=== PATIENT | female | born 1940 | race American Indian/Alaskan Native ===

== ENCOUNTER 2021-06-03 12:10 | Observation (INO) | payer MEDICARE ==
[2021-06-03 15:46] LABS: Albumin 3.3 g/dL (3.9-5); Calcium 10.5 mg/dL (8.4-10.2)
[2021-06-03 15:53] LABS: Basophils # (Auto) 0.2 K/mm3 (0.0-0.1); Eosinophils % (Auto) 0.4 % (0.0-4.3); Hemoglobin 12.8 gm/dl (10.1-14.3); Lymphocytes % (Auto) 12.1 % (13.4-35.0); Mean Corpuscular HGB Conc 34 % (30-34); Mean Corpuscular Volume 87 fl (79-97); Monocytes # (Auto) 1.1 K/mm3 (0.0-0.8); Monocytes % (Auto) 13.4 % (0.0-7.3); Platelet Count 369 K/mm3 (140-440); Red Blood Count 4.38 M/mm3 (3.65-5.03); Red Cell Distribution Width 15.6 % (13.2-15.2)
--- NOTE | 2021-06-03 16:29 | XRay Report ---
CHEST 1 VIEW INDICATION / CLINICAL INFORMATION: hypotension. COMPARISON: None available. FINDINGS: SUPPORT DEVICES: None. HEART / MEDIASTINUM: No significant abnormality. LUNGS / PLEURA: There is mild elevation of the right hemidiaphragm with a small right pleural effusio n. The lungs are otherwise clear without focal pulmonary consolidation. No pneumothorax. ADDITIONAL FINDINGS: No significant additional findings. IMPRESSION: 1. Mild elevation of the right hemidiaphragm with a small right pleural effusion. Otherwise, no acute abnormality. Signer Name: Alivia Schwartz MD Signed: 06/03/2021 4:25 PM Workstation Name: [id number]
--- NOTE | 2021-06-03 16:47 | Emergency Department Report ---
ED General Adult HPI - General Chief complaint: Medical Clearance Stated complaint: HYPOTENSION Time Seen by Provider: 06/03/21 13:28 Source: EMS Mode of arrival: Stretcher Limitations: No Limitations - History of Present Illness Initial comments: The patient presents to the emergency department from [facility] for hypotension. Patient has a history of breast cancer and states she is in no pain. Patient had systolic blood pressure readings in the 80s and 90s at [facility]. Patient is normotensive upon arrival to the emergency department with a blood pressure 114/74. Patient denies chest pain, shortness breath, headache. I was able to find out that the patient's blood pressure at [facility] was 80/60. Patient received IV fluids in route. -: unknown Severity scale (0 -10): 0 Consistency: now resolved Improves with: none Worsens with: none Associated Symptoms: denies other symptoms Treatments Prior to Arrival: none - Related Data Home Medications Medication Instructions Recorded Confirmed Last Taken Loratadine (Nf) [Claritin] 10 mg PO DAILY 05/27/17 05/27/17 05/31/17 guaiFENesin/DEXTROMETHORPHAN [Gs 1 tab PO PRN PRN 05/27/17 05/27/17 05/31/17 Mucus Relief Dm Tablet] Allergies Allergy/AdvReac Type Severity Reaction Status Date / Time Iodinated Contrast Media Allergy Swelling Verified 05/27/17 11:48 [Iodinated Contrast Media - IV Dye] ED Review of Systems ROS: Stated complaint: HYPOTENSION Other details as noted in HPI Comment: All other systems reviewed and negative Constitutional: denies: chills, fever Eyes: denies: eye pain, eye discharge, vision change ENT: denies: ear pain, throat pain Respiratory: denies: cough, shortness of breath, wheezing Cardiovascular: denies: chest pain, palpitations Endocrine: no symptoms reported Gastrointestinal: denies: abdominal pain, nausea, diarrhea Genitourinary: denies: urgency, dysuria, discharge Musculoskeletal: denies: back pain, joint swelling, arthralgia Skin: denies: rash, lesions Neurological: denies: headache, weakness, paresthesias Psychiatric: denies: anxiety, depression Hematological/Lymphatic: denies: easy bleeding, easy bruising ED Past Medical Hx - Past Medical History Hx Hypertension: No Hx Congestive Heart Failure: No Hx GERD: Yes Hx Liver Disease: No Hx Renal Disease: No Hx of Cancer: Yes Hx Sickle Cell Disease: No Hx Arthritis: Yes - Surgical History Past Surgical History?: Yes Additional Surgical History: bilateral knee replacement. hysterectomy - Social History Smoking Status: Never Smoker - Medications Home Medications: Home Medications Medication Instructions Recorded Confirmed Last Taken Type Loratadine (Nf) [Claritin] 10 mg PO DAILY 05/27/17 05/27/17 05/31/17 History guaiFENesin/DEXTROMETHORPHAN [Gs 1 tab PO PRN PRN 05/27/17 05/27/17 05/31/17 History Mucus Relief Dm Tablet] ED Physical Exam - General Limitations: No Limitations General appearance: alert, in no apparent distress - Head Head exam: Present: atraumatic, normocephalic - Eye Eye exam: Present: normal appearance, PERRL, EOMI - ENT ENT exam: Present: mucous membranes moist - Neck Neck exam: Present: normal inspection - Respiratory Respiratory exam: Present: normal lung sounds bilaterally. Absent: respiratory distress - Cardiovascular Cardiovascular Exam: Present: regular rate, normal rhythm. Absent: systolic murmur, diastolic murmur, rubs, gallop - GI/Abdominal GI/Abdominal exam: Present: soft, normal bowel sounds. Absent: distended, tenderness - Extremities Exam Extremities exam: Present: normal inspection - Back Exam Back exam: Present: normal inspection - Neurological Exam Neurological exam: Present: alert, oriented X3, CN II-XII intact. Absent: motor sensory deficit - Psychiatric Psychiatric exam: Present: normal affect, normal mood - Skin Skin exam: Present: warm, dry, intact, normal color. Absent: rash ED Course Vital Signs 06/03/21 06/03/21 13:39 14:16 Temperature 98.0 F O2 Sat by Pulse 99 Oximetry ED Medical Decision Making - Lab Data Result diagrams: 06/03/21 15:06 06/03/21 15:06 Lab Results 06/03/21 06/03/21 06/03/21 Range/Units 15:06 15:06 17:42 WBC 8.2 (4.5-11.0) K/mm3 RBC 4.38 (3.65-5.03) M/mm3 Hgb 12.8 (10.1-14.3) gm/dl Hct 38.0 (30.3-42.9) % MCV 87 (79-97) fl MCH 29 (28-32) pg MCHC 34 (30-34) % RDW 15.6 H (13.2-15.2) % Plt Count 369 (140-440) K/mm3 Lymph % (Auto) 12.1 L (13.4-35.0) % [place] % (Auto) 13.4 H (0.0-7.3) % Eos % (Auto) 0.4 (0.0-4.3) % Baso % (Auto) 2.0 H (0.0-1.8) % Lymph # (Auto) 1.0 L (1.2-5.4) K/mm3 [place] # (Auto) 1.1 H (0.0-0.8) K/mm3 Eos # (Auto) 0.0 (0.0-0.4) K/mm3 Baso # (Auto) 0.2 H (0.0-0.1) K/mm3 Seg Neutrophils % 72.1 H (40.0-70.0) % Seg Neutrophils # 5.9 (1.8-7.7) K/mm3 Sodium 132 L (137-145) mmol/L Potassium 3.3 L (3.6-5.0) mmol/L Chloride 92.3 L (98-107) mmol/L Carbon Dioxide 25 (22-30) mmol/L Anion Gap 18 mmol/L BUN 16 (7-17) mg/dL Creatinine 1.3 H (0.6-1.2) mg/dL Estimated GFR 48 ml/min BUN/Creatinine Ratio 12 % Glucose 85 (65-100) mg/dL Calcium 10.5 H (8.4-10.2) mg/dL Total Bilirubin 0.90 (0.1-1.2) mg/dL AST 72 H (5-40) units/L ALT 13 (7-56) units/L Alkaline Phosphatase 113 (35-129) units/L Total Protein 7.2 (6.3-8.2) g/dL Albumin 3.3 L (3.9-5) g/dL Albumin/Globulin Ratio 0.8 % Urine Color [place] (Yellow) Urine Turbidity Cloudy (Clear) Urine pH 5.0 (5.0-7.0) Ur Specific [place] 1.015 (1.003-1.030) Urine Protein >500 (Negative) mg/dL Urine Glucose (UA) 50 (Negative) mg/dL Urine Ketones Tr (Negative) mg/dL Urine Blood Sm (Negative) Urine Nitrite Neg (Negative) Urine Bilirubin Neg (Negative) Urine Urobilinogen < 2.0 (<2.0) mg/dL Ur Leukocyte Esterase Tr (Negative) Urine WBC (Auto) 25.0 H (0.0-6.0) /HPF Urine RBC (Auto) 7.0 (0.0-6.0) /HPF U Epithel Cells (Auto) 5.0 (0-13.0) /HPF Urine Bacteria (Auto) 4+ (Negative) /HPF Hyaline Casts 35 /LPF Urine Mucus 3+ /HPF - EKG Data -: EKG Interpreted by Me EKG shows normal: sinus rhythm Rate: normal - Medical Decision Making Patient received IV fluids and IV antibiotics Critical care attestation.: If time is entered above; I have spent that time in minutes in the direct care of this critically ill patient, excluding procedure time. ED Disposition Clinical Impression: UTI (urinary tract infection), Hypotension Disposition: DC-09 OP ADMIT IP TO THIS HOSP Is pt being admited?: Yes Does the pt Need Aspirin: No Condition: Fair Referrals: TYRESE EMMANUEL MD [Primary Care Provider] - 3-5 Days
[2021-06-03 18:01] LABS: Bacteria,Urine 4+ /HPF (Negative); Bilirubin,Urine NEG (Negative); Blood,Urine SM (Negative); Color,Urine Amber (Yellow); Hyaline Casts,Urine 35 /LPF; Mucus,Urine 3+ /HPF; Urobilinogen,Urine < 2.0 mg/dL (<2.0)
[2021-06-03 18:06] LABS: Protein,Urine >500 mg/dL (Negative)
[2021-06-03] MEDS ORDERED: cefTRIAXone/NS 1 GM/50 ML 1 GM/50 ML BAG IV ONE (18:42)
--- NOTE | 2021-06-03 20:28 | History and Physical Report ---
History of Present Illness Date of examination: 06/03/21 Date of admission: 06/03/21 19:42 Chief complaint: hypotension History of present illness: The patient presents to the emergency department from [facility] for hypotension. Patient has a history of breast cancer and states she is in no pain. Patient had systolic blood pressure readings in the 80s and 90s at [facility]. Patient is normotensive upon arrival to the emergency department with a blood pressure 114/74. Patient denies chest pain, shortness breath, headache. I was able to find out that the patient's blood pressure at [facility] was 80/60. ED work-up WBC 8.5, hemoglobin 12.6, platelet 325, hemoglobin A1c 5.6, sodium 132, potassium 3.3, creatinine 1.3, and serum albumin 3.3. Patient seen at bedside in the ED. Patient alert oriented x3. Reviewed chest x-ray report patient has a mild elevation of the right hemidiaphragm with a small right pleural effusion. Patient has a history of breast cancer with skin wound with wound on her chestshe denies any pain at the site patient came with low blood pressure in the 80s and 90s systolic but has status has improved at this time time of this assessment. I reviewed patient medication record, medical record, and vital signs. Patient was not in acute distress. Past History Past Medical History: cancer, other (seasonal allergies) Past Surgical History: hysterectomy, total knee replacement, Other (breast surgery due to breast cancer) Medications and Allergies Allergies Allergy/AdvReac Type Severity Reaction Status Date / Time Iodinated Contrast Media Allergy Swelling Verified 05/27/17 11:48 [Iodinated Contrast Media - IV Dye] Home Medications Medication Instructions Recorded Confirmed Last Taken Type No Known Home Medications [No 06/04/21 06/04/21 Unknown History Reported Home Medications] Review of Systems Constitutional: fatigue, weakness Ears, nose, mouth and throat: no epistaxis Respiratory: cough Gastrointestinal: no melena Rectal: no hemorrhoids Integumentary: wounds (on her breast), no rash, no pruritis Neurological: weakness Psychiatric: no disorientation, no hallucinations Hematologic/Lymphatic: no easy bruising, no easy bleeding Allergic/Immunologic: allergic rhinitis, no urticaria Exam - Constitutional Vitals: Temp Pulse Resp BP Pulse Ox 98.0 F 99 06/03/21 13:39 06/03/21 14:16 General appearance: Present: mild distress, other (frail appearing patient) - EENT Eyes: Present: PERRL ENT: hearing intact, clear oral mucosa - Neck Neck: Present: supple, normal ROM - Respiratory Respiratory effort: normal Respiratory: bilateral: CTA - Cardiovascular Heart Sounds: Present: S1 & S2. Absent: rub, click - Extremities Extremities: pulses symmetrical, No edema Peripheral Pulses: within normal limits - Abdominal General gastrointestinal: Present: soft, non-tender, non-distended, normal bowel sounds Female genitourinary: Present: normal - Integumentary Integumentary: Present: clear, warm, dry - Musculoskeletal Musculoskeletal: gait normal, strength equal bilaterally - Psychiatric Psychiatric: appropriate mood/affect, intact judgment & insight - Neurologic Neurologic: CNII-XII intact, moves all extremities - Allied Health Allied health notes reviewed: nursing Results - Labs CBC & Chem 7: 06/04/21 04:54 06/03/21 15:06 Labs: Abnormal lab results 06/03/21 06/03/21 06/03/21 Range/Units 15:06 15:06 17:42 RDW 15.6 H (13.2-15.2) % Lymph % (Auto) 12.1 L (13.4-35.0) % [place] % (Auto) 13.4 H (0.0-7.3) % Baso % (Auto) 2.0 H (0.0-1.8) % Lymph # (Auto) 1.0 L (1.2-5.4) K/mm3 [place] # (Auto) 1.1 H (0.0-0.8) K/mm3 Baso # (Auto) 0.2 H (0.0-0.1) K/mm3 Seg Neutrophils % 72.1 H (40.0-70.0) % Sodium 132 L (137-145) mmol/L Potassium 3.3 L (3.6-5.0) mmol/L Chloride 92.3 L (98-107) mmol/L Creatinine 1.3 H (0.6-1.2) mg/dL Calcium 10.5 H (8.4-10.2) mg/dL AST 72 H (5-40) units/L Albumin 3.3 L (3.9-5) g/dL Urine WBC (Auto) 25.0 H (0.0-6.0) /HPF Assessment and Plan - Patient Problems (1) Hypotension Current Visit: Yes Status: Acute Plan to address problem: Monitor blood pressure Hold all antihypertensive Continue gentle IV hydration. (2) UTI (urinary tract infection) Current Visit: Yes Status: Acute Plan to address problem: Continue antibiotics Urine and blood culturefollow-up with results Continue IV hydration. (3) Degenerative arthritis of left knee Current Visit: No Status: Resolved Qualifiers: Osteoarthritis type: primary Qualified Code(s): M17.12 - Unilateral primary osteoarthritis, left knee Plan to address problem: Pain management as needed (4) History of breast cancer Current Visit: Yes Status: Acute Plan to address problem: Supportive care (5) DVT prophylaxis Current Visit: Yes Status: Acute Plan to address problem: Lovenox subcutaneous (6) Full code status Current Visit: Yes Status: Acute Plan to address problem: Patient is full code
[2021-06-03] MEDS ORDERED: METOCLOPRAMIDE 10 MG/2 ML INJ IV PRN (20:35)
[2021-06-03] MEDS ORDERED: ACETAMINOPHEN 325 MG TAB PO PRN (20:35)
[2021-06-03] MEDS ORDERED: SENNOSIDES 8.6 MG TAB PO PRN (20:35)
[2021-06-03] MEDS ORDERED: ALBUTEROL 2.5 MG/3 ML NEBU IH PRN (20:35)
[2021-06-03] MEDS ORDERED: MAGNESIUM HYDROXIDE (MOM) ORAL LIQD UDC PO PRN (20:35)
[2021-06-03] MEDS ORDERED: HYDROcodone/ACETAMINOPHEN 5-325 MG TAB PO PRN (20:35)
[2021-06-03] MEDS ORDERED: MORPHINE 2 MG/1 ML INJ IV PRN (20:35)
[2021-06-03] MEDS ORDERED: HYDROmorphone 1 MG/1 ML INJ IV PRN (20:35)
[2021-06-03] MEDS ORDERED: ONDANSETRON 4 MG/2 ML INJ IV PRN (20:35)
[2021-06-03] MEDS ORDERED: ALUM-MAG HYDROXIDE-SIMETHICONE 200-200-20MG/5ML ORAL LIQD 30 ML PO PRN (20:35)
[2021-06-03] MEDS ORDERED: NALOXONE 0.4 MG/1 ML INJ IV PRN (20:35)
[2021-06-03] MEDS ORDERED: guaiFENesin DM 200/20 MG ORAL LIQD 10 ML PO PRN (20:43)
[2021-06-03] MEDS ORDERED: NON-FORMULARY EACH (Loratadine (Nf) 10 MG Tablet) PO SCH (20:45)
[2021-06-03] MEDS ORDERED: FAMOTIDINE 20 MG/2 ML INJ IV SCH (22:00)
[2021-06-04] MEDS: CETIRIZINE 10 MG TAB PO SCH ×2 (01:46→23:10)
[2021-06-04] MEDS: ENOXAPARIN 40 MG/0.4 ML INJ SUB-Q SCH ×2 (01:47→23:09)
[2021-06-04 06:20] LABS: Basophils # (Auto) 0.1 K/mm3 (0.0-0.1); Basophils % (Auto) 0.9 % (0.0-1.8); Eosinophils % (Auto) 0.2 % (0.0-4.3); Hematocrit 37.3 % (30.3-42.9); Hemoglobin 12.6 gm/dl (10.1-14.3); Lymphocytes % (Auto) 12.2 % (13.4-35.0); Mean Corpuscular HGB Conc 34 % (30-34); Mean Corpuscular Volume 86 fl (79-97); Monocytes % (Auto) 11.6 % (0.0-7.3); Platelet Count 325 K/mm3 (140-440); Red Blood Count 4.32 M/mm3 (3.65-5.03); Red Cell Distribution Width 15.8 % (13.2-15.2)
[2021-06-04 06:36] LABS: Alanine Aminotransferase 15 units/L (7-56); Albumin 3.4 g/dL (3.9-5); BUN/Creatinine Ratio 21; Blood Urea Nitrogen 17 mg/dL (7-17); Calcium 10.4 mg/dL (8.4-10.2); Hemolysis Index 2
[2021-06-04] MEDS ORDERED: SODIUM CHLORIDE 0.9% 1000 ML 1,000 ML IV SCH (07:15)
--- NOTE | 2021-06-04 10:24 | Electrocardiograph Report ---
[facility] Test Date: 2021-06-03 Test Time: 13:30:04 Pat Name: MARLENA BARRETT Department: Room: [place] [address] Gender: F Deck Steward: MEKA : 1940 Requested By: ZION LEMUS Order Number: [id number] Reading MD: Zack Gil Measurements Intervals [place] Rate: 89 P: 118 IN: 118 QRS: 54 QRSD: 83 T: QT: 345 QTc: 420 Interpretive Statements Sinus rhythm Probable left atrial enlargement Nonspecific T abnormalities, diffuse leads No previous ECG available for comparison Electronically Signed On 06-04-2021 10:24:08 EDT by Zack Gil
--- NOTE | 2021-06-04 13:40 | Consultation ---
History of Present Illness Consult date: 06/04/21 Reason for consult: pleural effusion, other (Hypotension.) History of present illness: The patient presents to the emergency department from [facility] for hypotension. Patient has a history of breast cancer and states she is in no pain. Patient had systolic blood pressure readings in the 80s and 90s at [facility]. Patient is normotensive upon arrival to the emergency department with a blood pressure 114/74. Patient denies chest pain, shortness breath, headache. Patient's blood pressure at [facility] was 80/60. ED work-up WBC 8.5, hemoglobin 12.6, platelet 325, hemoglobin A1c 5.6, sodium 132, potassium 3.3, creatinine 1.3, and serum albumin 3.3. Patient seen at bedside in the ED. Patient alert oriented x3. Reviewed chest x-ray report patient has a mild elevation of the right hemidiaphragm with a small right pleural effusion. Patient has a history of breast cancer with skin wound with wound on her chestshe denies any pain at the site patient came with low blood pressure in the 80s and 90s systolic but has status has improved at this time time of this assessment. Patient has no history of smoking, alcohol or drug abuse. Patient awake. Patient weak. Patient resting on room air. O2 saturation 98%. Patients Blood pressure improved. Patients blood pressure 130/80, Pulse 110. Patient afebrile. No leukocytosis. Chest xray done 06/03/21 reported Mild elevation of the right hemidiaphragm with a small right pleural effusion. Otherwise, no acute abnormality. Patient is on ceftriaxone, S/C Lovenox, Albuterol inhaler, Famotidine and I/V Fluids. Past History Past Medical History: cancer, other (seasonal allergies) Past Surgical History: hysterectomy, total knee replacement, Other (breast surgery due to breast cancer) Medications and Allergies Allergies Allergy/AdvReac Type Severity Reaction Status Date / Time Iodinated Contrast Media Allergy Swelling Verified 05/27/17 11:48 [Iodinated Contrast Media - IV Dye] Home Medications Medication Instructions Recorded Confirmed Last Taken Type No Known Home Medications [No 06/04/21 06/04/21 Unknown History Reported Home Medications] Active Meds: Active Medications Acetaminophen (Acetaminophen 325 Mg Tab) 650 mg PO Q6H PRN PRN Reason: Pain, Mild (1-3) Hydrocodone Bitart/Acetaminophen (Hydrocodone/Acetaminophen 5-325 Mg Tab) 2 each PO Q6H PRN PRN Reason: Pain, Moderate (4-6) Al Hydrox/Mg Hydrox/Simethicone (Alum-Mag Hydroxide-Simethicone [phone]/5ml Oral Liqd 30 Ml) 30 ml PO Q4H PRN PRN Reason: Indigestion Albuterol (Albuterol 2.5 Mg/3 Ml Nebu) 2.5 mg IH Q4HRT PRN PRN Reason: Shortness Of Breath Cetirizine HCl (Cetirizine 10 Mg Tab) 10 mg PO Q24H PENDING SALE TO [facility] Last Admin: 06/04/21 01:46 Dose: Not Given Documented by: Enoxaparin Sodium (Enoxaparin 40 Mg/0.4 Ml Inj) 40 mg SUB-Q QDAY@2200 PENDING SALE TO [facility] Last Admin: 06/04/21 01:47 Dose: 40 mg Documented by: Famotidine (Famotidine 10 Mg Tab) 10 mg PO BID PENDING SALE TO [facility] Guaifenesin (Guaifenesin Dm 200/20 Mg Oral Liqd 10 Ml) 10 ml PO Q4H PRN PRN Reason: Congestion/COUGH Ceftriaxone Sodium (Rocephin/Ns 1 Gm/50 Ml) 1 gm in 50 mls @ 100 mls/hr IV Q24H PENDING SALE TO [facility]; Protocol Stop: 06/06/21 17:29 Sodium Chloride (Nacl 0.9% 1000 Ml) 1,000 mls @ 75 mls/hr IV DIRECT SHALINI Magnesium Hydroxide (Magnesium Hydroxide (Mom) Oral Liqd Udc) 30 ml PO Q4H PRN PRN Reason: Constipation Metoclopramide HCl (Metoclopramide 10 Mg/2 Ml Inj) 10 mg IV Q6H PRN PRN Reason: Nausea And Vomiting Naloxone HCl (Naloxone 0.4 Mg/1 Ml Inj) 0.1 mg IV Q2MIN PRN PRN Reason: Res Rate </= 8 or 02 SAT < 92% Ondansetron HCl (Ondansetron 4 Mg/2 Ml Inj) 4 mg IV Q8H PRN PRN Reason: Nausea And Vomiting Senna (Sennosides 8.6 Mg Tab) 8.6 mg PO Q12HR PRN PRN Reason: Constipation Sodium Chloride (Sodium Chloride 0.9% 10 Ml Flush Syringe) 10 ml IV BID SHALINI Last Admin: 06/04/21 01:47 Dose: 10 ml Documented by: Sodium Chloride (Sodium Chloride 0.9% 10 Ml Flush Syringe) 10 ml IV PRN PRN PRN Reason: LINE FLUSH Review of Systems All systems: negative Physical Examination Vital signs: Vital Signs Pulse Resp Pulse Ox 88 24 96 06/03/21 13:35 06/03/21 13:35 06/03/21 13:35 General appearance: no acute distress, alert, other (Weak.) Eyes: non-icteric ENT: oropharynx moist Neck: supple, no JVD Effort: mildly labored Ascultation: Bilateral: diminished breath sounds Cardiovascular: regular rate and rhythm Gastrointestinal: normoactive bowel sounds, soft, non-tender Integumentary: normal Extremities: no cyanosis, no edema Gait: poor gait non-focal exam, pupils equal and round depressed Results - Laboratory Findings CBC and BMP: 06/04/21 04:54 06/04/21 04:54 Abnormal lab findings: Abnormal Labs 06/03/21 06/03/21 06/03/21 15:06 15:06 17:42 RDW 15.6 H Lymph % (Auto) 12.1 L [place] % (Auto) 13.4 H Baso % (Auto) 2.0 H Lymph # (Auto) 1.0 L [place] # (Auto) 1.1 H Baso # (Auto) 0.2 H Seg Neutrophils % 72.1 H Sodium 132 L Potassium 3.3 L Chloride 92.3 L Creatinine 1.3 H Calcium 10.5 H AST 72 H Albumin 3.3 L Urine WBC (Auto) 25.0 H 06/04/21 06/04/21 04:54 04:54 RDW 15.8 H Lymph % (Auto) 12.2 L [place] % (Auto) 11.6 H Baso % (Auto) Lymph # (Auto) 1.0 L [place] # (Auto) 1.0 H Baso # (Auto) Seg Neutrophils % 75.1 H Sodium 135 L Potassium Chloride 93.7 L Creatinine Calcium 10.4 H AST 87 H Albumin 3.4 L Urine WBC (Auto) - Diagnostic Findings Chest x-ray: report reviewed, image reviewed Additional studies: CHEST 1 VIEW 06/03/21 INDICATION / CLINICAL INFORMATION: hypotension. COMPARISON: None available. FINDINGS: SUPPORT DEVICES: None. HEART / MEDIASTINUM: No significant abnormality. LUNGS / PLEURA: There is mild elevation of the right hemidiaphragm with a small right pleural effusion. The lungs are otherwise clear without focal pulmonary consolidation. No pneumothorax. ADDITIONAL FINDINGS: No significant additional findings. IMPRESSION: 1. Mild elevation of the right hemidiaphragm with a small right pleural effusion. Otherwise, no acute abnormality. Assessment and Plan The patient presents to the emergency department from [facility] for hypotension. Patient has a history of breast cancer and states she is in no pain. Patient had systolic blood pressure readings in the 80s and 90s at [facility]. Patient is normotensive upon arrival to the emergency department with a blood pressure 114/74. Patient denies chest pain, shortness breath, headache. Patient's blood pressure at [facility] was 80/60. ED work-up WBC 8.5, hemoglobin 12.6, platelet 325, hemoglobin A1c 5.6, sodium 132, potassium 3.3, creatinine 1.3, and serum albumin 3.3. Patient seen at bedside in the ED. Patient alert oriented x3. Reviewed chest x-ray report patient has a mild elevation of the right hemidiaphragm with a small right pleural effusion. Patient has a history of breast cancer with skin wound with wound on her chestshe denies any pain at the site patient came with low blood pressure in the 80s and 90s systolic but has status has improved at this time time of this assessment. Patient has no history of smoking, alcohol or drug abuse. Patient awake. Patient weak. Patient resting on room air. O2 saturation 98%. Patients Blood pressure improved. Patients blood pressure 130/80, Pulse 110. Patient afebrile. No leukocytosis. Chest xray done 06/03/21 reported Mild elevation of the right hemidiaphragm with a small right pleural effusion. Otherwise, no acute abnormality. Patient is on ceftriaxone, S/C Lovenox, Albuterol inhaler, Famotidine and I/V Fluids. - Patient Problems (1) Hypotension Current Visit: Yes Status: Acute Plan to address problem: Patient is on I/V fluids and ceftriaxone. (2) UTI (urinary tract infection) Current Visit: Yes Status: Acute Plan to address problem: Patient is on ceftriaxone.
[2021-06-04 16:09] LABS: INR 1.1 (0.87-1.13)
--- NOTE | 2021-06-04 16:38 | Progress Note ---
Assessment and Plan The patient presented to the emergency department from [facility] for hypotension. -- Hypotension, resolved Monitor blood pressure Hold all antihypertensive Continue gentle IV hydration. --COVID 19 PUI patient did not receive COVID vaccine c/o cough, will r/o for COVID -- UTI (urinary tract infection) Continue antibiotics Urine and blood culturefollow-up with results Continue IV hydration. --Right pleural effusion ordered for thoracentesis and cytology -- Degenerative arthritis of left knee Pain management as needed -- History of breast cancer left breast mass with ulcer, not on any treatment discussed with Dr Serrano with patient's findings and recommended outpt f/u - updated daughter -- DVT prophylaxis Lovenox subcutaneous Subjective Date of service: 06/04/21 Interval history: Patient seen and examined vitals noted c/o cough and left breast mass Discussed with daughter by phone Objective - Constitutional Vitals: Vital Signs - 12hr 06/04/21 06/04/21 06/04/21 04:46 05:00 05:18 Pulse Rate 86 86 91 H Respiratory 28 H 25 H 18 Rate Blood Pressure 136/79 136/79 O2 Sat by Pulse 94 93 93 Oximetry 06/04/21 06/04/21 06/04/21 05:30 05:46 06:00 Pulse Rate 84 83 90 Respiratory 28 H 28 H 25 H Rate Blood Pressure 143/88 143/88 140/87 O2 Sat by Pulse 94 93 94 Oximetry 06/04/21 06/04/21 06/04/21 06:16 06:30 07:00 Pulse Rate 94 H 95 H 93 H Respiratory 28 H 26 H 28 H Rate Blood Pressure 140/87 140/87 145/83 O2 Sat by Pulse 96 94 94 Oximetry 06/04/21 06/04/21 06/04/21 08:00 09:00 10:00 Pulse Rate 101 H 95 H 93 H Respiratory 15 19 29 H Rate Blood Pressure 143/86 135/81 129/82 O2 Sat by Pulse 95 95 93 Oximetry 06/04/21 06/04/21 06/04/21 11:00 12:00 13:00 Pulse Rate 97 H 100 H 100 H Respiratory 29 H 31 H 34 H Rate Blood Pressure 141/85 143/88 130/86 O2 Sat by Pulse 94 94 93 Oximetry General appearance: Present: no acute distress - EENT Eyes: PERRL, EOM intact ENT: hearing intact, clear oral mucosa Ears: bilateral: normal - Neck Neck: supple, normal ROM - Respiratory Respiratory effort: normal Respiratory: bilateral: CTA - Breasts Breasts: mass (left breast mass with ulcerated skin) - Cardiovascular Rhythm: regular Heart Sounds: Present: S1 & S2. Absent: gallop, rub Extremities: pulses intact, No edema, normal color, Full ROM - Gastrointestinal General gastrointestinal: Present: soft, non-tender, non-distended, normal bowel sounds - Integumentary Integumentary: clear, warm, dry - Musculoskeletal Musculoskeletal: 1, strength equal bilaterally - Neurologic Neurologic: moves all extremities - Psychiatric Psychiatric: memory intact, appropriate mood/affect, intact judgment & insight - Labs CBC & Chem 7: 06/04/21 04:54 06/04/21 04:54 Labs: Abnormal lab results 06/03/21 06/04/21 06/04/21 Range/Units 17:42 04:54 04:54 RDW 15.8 H (13.2-15.2) % Lymph % (Auto) 12.2 L (13.4-35.0) % [place] % (Auto) 11.6 H (0.0-7.3) % Lymph # (Auto) 1.0 L (1.2-5.4) K/mm3 [place] # (Auto) 1.0 H (0.0-0.8) K/mm3 Seg Neutrophils % 75.1 H (40.0-70.0) % Sodium 135 L (137-145) mmol/L Chloride 93.7 L (98-107) mmol/L Calcium 10.4 H (8.4-10.2) mg/dL AST 87 H (5-40) units/L Albumin 3.4 L (3.9-5) g/dL Urine WBC (Auto) 25.0 H (0.0-6.0) /HPF
[2021-06-04] MEDS: cefTRIAXone/NS 1 GM/50 ML 1 GM/50 ML BAG IV SCH (20:43)
[2021-06-04] MEDS: FAMOTIDINE 10 MG TAB PO SCH ×2 (23:09→23:11)
[2021-06-05] MEDS: FAMOTIDINE 10 MG TAB PO SCH ×2 (12:31→22:01)
--- NOTE | 2021-06-05 14:39 | Progress Note ---
Assessment and Plan Right pleural effusion H/O breast cancer Hypotension COVID 19 PUI UTI Degenerative arthritis of left knee - follow US thoracentesis for diagnostic and therapeutic reasons (also re: H/O breast CA) - prn supplemental oxygen to keep O2 sats > 90% - prn bronchodilators (ELLIOT) with pulm hygiene per RT - avoid nephrotoxins, renally dose all medications - continue mobility protocols to prevent pressure ulcers - PT/OT as tolerated - Wound care per RN/WCT - continue accuchecks with glycemic control per SSI for target blood glucose < 180 mg/dL - home oxygen evaluation at discharge - GI & VTE prophylaxis - Flu & pneumovax per protocol - prn analgesia per pain score - Pulmonary out patient follow up for PFTs and optimization of respiratory status - continue other care per attending / other consultants ... re-evaluate in am & prn Subjective Date of service: 06/05/21 Principal diagnosis: R. pleural effusion; H/O breast cancer; Hypotension; COVID 19 PUI; UTI Interval history: Patient is seen today for: Right pleural effusion; H/O breast cancer; Hypotension; COVID 19 PUI; UTI; Degenerative arthritis of left knee Seen and examined at bedside; 24hour events reviewed; nursing and respiratory care staff consulted; no adverse overnight events reported to me; resting peacefully in bed; no N/V/F/C; acute care clinical nurse specialist in room; for thoracentesis later Objective Vital Signs - 12hr 06/05/21 05:08 Temperature 98.1 F Pulse Rate 107 H Respiratory 18 Rate Blood Pressure 124/78 O2 Sat by Pulse 90 Oximetry Constitutional: no acute distress, alert, other (Weak.) Eyes: non-icteric ENT: oropharynx moist Neck: supple, no JVD Effort: mildly labored Ascultation: Right: rhonchi, Bilateral: diminished breath sounds Percussion: Right: dull (base) Cardiovascular: regular rate and rhythm Gastrointestinal: normoactive bowel sounds, soft, non-tender, non-distended Integumentary: normal Extremities: no cyanosis, no edema, pulses normal Neurologic: non-focal exam, pupils equal and round, CN II-XII normal Psychiatric: mood appropriate, affect normal CBC and BMP: 06/04/21 04:54 06/04/21 04:54 ABG, PT/INR, D-dimer: PT/INR, D-dimer PT 14.8 Sec. (12.2-14.9) 06/04/21 15:13 INR 1.10 (0.87-1.13) 06/04/21 15:13 Abnormal lab findings: Abnormal Labs 06/03/21 06/03/21 06/03/21 15:06 15:06 17:42 RDW 15.6 H Lymph % (Auto) 12.1 L [place] % (Auto) 13.4 H Baso % (Auto) 2.0 H Lymph # (Auto) 1.0 L [place] # (Auto) 1.1 H Baso # (Auto) 0.2 H Seg Neutrophils % 72.1 H Sodium 132 L Potassium 3.3 L Chloride 92.3 L Creatinine 1.3 H Calcium 10.5 H AST 72 H Albumin 3.3 L Urine WBC (Auto) 25.0 H 06/04/21 06/04/21 04:54 04:54 RDW 15.8 H Lymph % (Auto) 12.2 L [place] % (Auto) 11.6 H Baso % (Auto) Lymph # (Auto) 1.0 L [place] # (Auto) 1.0 H Baso # (Auto) Seg Neutrophils % 75.1 H Sodium 135 L Potassium Chloride 93.7 L Creatinine Calcium 10.4 H AST 87 H Albumin 3.4 L Urine WBC (Auto) Chest x-ray: image reviewed Allied health notes reviewed: nursing
--- NOTE | 2021-06-05 15:33 | Progress Note ---
Assessment and Plan - Patient Problems (1) Pleural effusion Current Visit: Yes Status: Acute Plan to address problem: Diagnostic thoracentesis planned for a.m. Anticipated discharge after thoracentesis with follow-up pulmonology and breast surgery. Dr. Serrano. (2) Full code status Current Visit: Yes Status: Acute (3) History of breast cancer Current Visit: Yes Status: Acute Plan to address problem: Currently no treatment will require oncology outpatient. (4) UTI (urinary tract infection) Current Visit: Yes Status: Acute Plan to address problem: Empiric antibiotic treatment here. Does not appear to be septic at this time. (5) Degenerative arthritis of left knee Current Visit: No Status: Resolved Qualifiers: Osteoarthritis type: primary Qualified Code(s): M17.12 - Unilateral primary osteoarthritis, left knee Plan to address problem: Pain control Supportive care. Subjective Date of service: 06/05/21 Principal diagnosis: R. pleural effusion; H/O breast cancer; Hypotension; COVID 19 PUI; UTI Interval history: Patient presents from [facility] right pleural effusion history of breast mass hypotension. Patient currently ruled out for COVID-19 with negative serology. Blood pressure now stabilized no longer hypotensive after IV fluids. Patient has right pleural effusion with a history of breast cancer. Diagnostic thoracentesis scheduled since patient is ruled out for [place]. Patient discharged a.m. after thoracentesis. Objective - Constitutional Vitals: Vital Signs - 12hr 06/05/21 06/05/21 05:08 10:55 Temperature 98.1 F 98.1 F Pulse Rate 107 H 108 H Respiratory 18 22 Rate Blood Pressure 124/78 114/69 O2 Sat by Pulse 90 92 Oximetry General appearance: Present: no acute distress, well-nourished - EENT Eyes: PERRL, EOM intact ENT: hearing intact, clear oral mucosa Ears: bilateral: normal - Neck Neck: supple, normal ROM - Respiratory Respiratory effort: normal Respiratory: bilateral: CTA - Breasts Breasts: normal - Cardiovascular Rhythm: regular Heart Sounds: Present: S1 & S2. Absent: gallop, rub Extremities: pulses intact, No edema, normal color, Full ROM - Gastrointestinal General gastrointestinal: Present: soft, non-tender, non-distended, normal bowel sounds - Genitourinary Female genitourinary: normal - Integumentary Integumentary: clear, warm, dry - Musculoskeletal Musculoskeletal: 1, strength equal bilaterally - Neurologic Neurologic: moves all extremities - Psychiatric Psychiatric: memory intact, appropriate mood/affect, intact judgment & insight - Labs CBC & Chem 7: 06/04/21 04:54 06/04/21 04:54
[2021-06-05] MEDS: ENOXAPARIN 40 MG/0.4 ML INJ SUB-Q SCH (22:01)
[2021-06-05] MEDS: cefTRIAXone/NS 1 GM/50 ML 1 GM/50 ML BAG IV SCH (22:01)
[2021-06-05] MEDS: CETIRIZINE 10 MG TAB PO SCH (22:02)
--- NOTE | 2021-06-06 08:18 | Discharge Summary ---
Providers - Providers Date of Admission: 06/03/21 19:42 Date of discharge: 06/06/21 Attending physician: JOHN REDD 06/03/21 Consult to Case Management [CONS] Routine Services Needed at Discharge: Bulb Sorter Notified:: cm notified 06/04/21 10:27 Consult to Physician [CONS] Routine Comment: Consulting Provider: ADELIA NASSAR Physician Instructions: Reason For Exam: right sided pleural effusion Primary care physician: TYRESE EMMANUEL Hospitalization Condition: Fair Pertinent studies: Thoracentesis moderate right pleural effusion. Hospital course: Patient presents from [facility] right pleural effusion history of breast mass hypotension. Patient currently ruled out for COVID-19 with negative serology. Blood pressure now stabilized no longer hypotensive after IV fluids. Patient has right pleural effusion with a history of breast cancer. Diagnostic thoracentesis scheduled since patient is ruled out for [place]. Patient discharged today after thoracentesis. Spoke to family in detail understand plan. Disposition: DC- TO HOME OR SELFCARE Final Discharge Diagnosis (Prints w/discharge instructions): Pleural effusion - Discharge Diagnoses (1) Pleural effusion Status: Acute Comment: Right side moderate pleural effusion. Etiology unknown. Thoracentesis obtained. Await diagnostic evaluation. (2) Full code status Status: Acute (3) History of breast cancer Status: Acute Comment: Patient to [facility] Anh Serrano (4) UTI (urinary tract infection) Status: Acute Comment: Treated antibiotics in house no antibiotics needed upon discharge. (5) Degenerative arthritis of left knee Status: Resolved Qualifiers: Osteoarthritis type: primary Qualified Code(s): M17.12 - Unilateral primary osteoarthritis, left knee Comment: Supplemented pain control NSAIDs, tramadol. Core Measure Documentation - Palliative Care Palliative Care/ Comfort Measures: Not Applicable - Core Measures Any of the following diagnoses?: none Exam - Constitutional Vitals: Temp Pulse Resp BP Pulse Ox 98.2 F 110 H 18 127/81 91 06/06/21 04:44 06/06/21 04:44 06/06/21 04:44 06/06/21 04:44 06/06/21 04:44 General appearance: Present: no acute distress, well-nourished - EENT Eyes: Present: PERRL ENT: hearing intact, clear oral mucosa - Neck Neck: Present: supple, normal ROM - Respiratory Respiratory effort: normal Respiratory: bilateral: CTA - Cardiovascular Heart Sounds: Present: S1 & S2. Absent: rub, click - Extremities Extremities: pulses symmetrical, No edema Peripheral Pulses: within normal limits - Abdominal General gastrointestinal: Present: soft, non-tender, non-distended, normal bowel sounds Female genitourinary: Present: normal - Integumentary Integumentary: Present: clear, warm, dry - Musculoskeletal Musculoskeletal: gait normal, strength equal bilaterally - Psychiatric Psychiatric: appropriate mood/affect, intact judgment & insight - Neurologic Neurologic: CNII-XII intact, moves all extremities Plan Activity: no restrictions, fall precautions Weight Bearing Status: Weight Bear as Tolerated Diet: regular Follow up with: TYRESE EMMANUEL MD [Primary Care Provider] - 3-5 Days KRZYSZTOF SERRANO MD [Staff Physician] - 7 Days Prescriptions: HYDROcodone/APAP 5-325 [[place] 5-325 mg TAB] 2 each PO Q6H PRN #14 tablet PRN Reason: Pain, Moderate (4-6)
--- NOTE | 2021-06-06 11:26 | Procedure Note ---
Date of procedure: 06/06/21 Pre-op diagnosis: right pleural effusion Post-op diagnosis: same Procedure: US thoracentesis Findings: moderate right pleural effusion Anesthesia: regional Surgeon: JOAQUIN AYALA Estimated blood loss: none Pathology: list (120cc) Specimen disposition: to lab Condition: stable Disposition: floor
[2021-06-06] MEDS: FAMOTIDINE 10 MG TAB PO SCH ×2 (12:11→23:56)
--- NOTE | 2021-06-06 13:16 | XRay Report ---
CHEST 1 VIEW INDICATION: right pl eff, recent thora. COMPARISON: 06/03/2021 FINDINGS: Support devices: None. Heart: Within normal limits. Lungs/Pleura: Near complete evacuation of the right pleural effusion is demonstrated. There is no conrad dence for pneumothorax. Partial atelectasis in the right middle and lower lobes remains. The left tyrese g is generally clear. Additional findings: None. IMPRESSION: Near complete evacuation of the right pleural effusion. No pneumothorax is demonstrated. Atelectatic changes at the right lung base, unchanged. Signer Name: Charbel Gibson Jr, MD Signed: 06/06/2021 1:12 PM Workstation Name: [id number]
--- NOTE | 2021-06-06 14:05 | Progress Note ---
Assessment and Plan Right pleural effusion H/O breast cancer Hypotension COVID 19 PUI UTI Degenerative arthritis of left knee - follow US thoracentesis for diagnostic and therapeutic reasons (also re: H/O breast CA) - prn supplemental oxygen to keep O2 sats > 90% - prn bronchodilators (ELLIOT) with pulm hygiene per RT - avoid nephrotoxins, renally dose all medications - continue mobility protocols to prevent pressure ulcers - PT/OT as tolerated - Wound care per RN/WCT - continue accuchecks with glycemic control per SSI for target blood glucose < 180 mg/dL - home oxygen evaluation at discharge - GI & VTE prophylaxis - Flu & pneumovax per protocol - prn analgesia per pain score - Pulmonary out patient follow up for PFTs and optimization of respiratory status - continue other care per attending / other consultants ... re-evaluate in am & prn Subjective Date of service: 06/06/21 Principal diagnosis: R. pleural effusion; H/O breast cancer; Hypotension; COVID 19 PUI; UTI Interval history: Patient is seen today for: Right pleural effusion; H/O breast cancer; Hypotension; COVID 19 PUI; UTI; Degenerative arthritis of left knee Seen and examined at bedside; 24hour events reviewed; nursing and respiratory care staff consulted; no adverse overnight events reported to me; resting peacefully in bed; s/p thoracentesis; Objective Vital Signs - 12hr 06/06/21 06/06/21 04:44 12:17 Temperature 98.2 F 97.7 F Pulse Rate 110 H 107 H Respiratory 18 24 Rate Blood Pressure 127/81 115/66 O2 Sat by Pulse 91 94 Oximetry Constitutional: no acute distress, alert, other (Weak.) Eyes: non-icteric ENT: oropharynx moist Neck: supple, no JVD Effort: mildly labored Ascultation: Right: rhonchi, Bilateral: diminished breath sounds Percussion: Right: dull (base) Cardiovascular: regular rate and rhythm Gastrointestinal: normoactive bowel sounds, soft, non-tender, non-distended Integumentary: normal Extremities: no cyanosis, no edema, pulses normal Neurologic: non-focal exam, pupils equal and round, CN II-XII normal Psychiatric: mood appropriate, affect normal CBC and BMP: 06/04/21 04:54 06/04/21 04:54 ABG, PT/INR, D-dimer: PT/INR, D-dimer PT 14.8 Sec. (12.2-14.9) 06/04/21 15:13 INR 1.10 (0.87-1.13) 06/04/21 15:13 Abnormal lab findings: Abnormal Labs 06/03/21 06/03/21 06/03/21 15:06 15:06 17:42 RDW 15.6 H Lymph % (Auto) 12.1 L [place] % (Auto) 13.4 H Baso % (Auto) 2.0 H Lymph # (Auto) 1.0 L [place] # (Auto) 1.1 H Baso # (Auto) 0.2 H Seg Neutrophils % 72.1 H Sodium 132 L Potassium 3.3 L [place] 92.3 L Creatinine 1.3 H Calcium 10.5 H AST 72 H Albumin 3.3 L Urine WBC (Auto) 25.0 H 06/04/21 06/04/21 04:54 04:54 RDW 15.8 H Lymph % (Auto) 12.2 L [place] % (Auto) 11.6 H Baso % (Auto) Lymph # (Auto) 1.0 L [place] # (Auto) 1.0 H Baso # (Auto) Seg Neutrophils % 75.1 H Sodium 135 L Potassium Chloride 93.7 L Creatinine Calcium 10.4 H AST 87 H Albumin 3.4 L Urine WBC (Auto) Chest x-ray: image reviewed (no post p[rocrdure pneumothorax) Allied health notes reviewed: nursing
--- NOTE | 2021-06-06 14:37 | Ultrasound Report ---
Ultrasound-guided thoracentesis HISTORY: Right pleural effusion. COMPARISON: AP chest performed yesterday PROCEDURE: The risks (including but not limited to bleeding, infection, and pneumothorax) and benefi ts were explained to the patient and informed consent was obtained. A time out procedure was perform ed. Ultrasound was used to evaluate the right pleural effusion and locate the optimal site for needle ent ry. Once the skin was marked, the procedure site was prepped and draped in the usual sterile fashion and lidocaine was used for local anesthesia. A 5 Kinyarwanda thoracentesis catheter was placed. The pat ient was monitored closely throughout the procedure, and a total of 750 mL of cloudy yellow fluid was aspirated. Samples were sent to the lab for further evaluation per the primary clinicians orders. The patient tolerated the procedure well with no complications. A post-procedure chest x-ray was imm ediately ordered. IMPRESSION: Successful thoracentesis as above with a total of 750 mL of slightly cloudy yellow fluid aspirated. Signer Name: Charbel Gibson Jr, MD Signed: 06/06/2021 2:33 PM Workstation Name: [id number]
[2021-06-06] MEDS: cefTRIAXone/NS 1 GM/50 ML 1 GM/50 ML BAG IV SCH (17:29)
[2021-06-06 19:05] LABS: Total Cells Counted 100 /mm3
[2021-06-06] MEDS: CETIRIZINE 10 MG TAB PO SCH (23:55)
[2021-06-06] MEDS: ENOXAPARIN 40 MG/0.4 ML INJ SUB-Q SCH (23:56)
--- NOTE | 2021-06-07 08:44 | Progress Note ---
Assessment and Plan Right pleural effusion H/O breast cancer Hypotension UTI Degenerative arthritis of left knee -Still awaiting Oncology - prn supplemental oxygen to keep O2 sats > 90% - prn bronchodilators (ELLIOT) with pulm hygiene per RT - PT/OT to evalute, she is extremely weak -Monitor hemodynamics closely -Encourage oral intake - Wound care per RN/WCT - continue accuchecks with glycemic control per SSI for target blood glucose < 180 mg/dL - VTE prophylaxis - Flu & pneumovax per protocol - prn analgesia per pain score - continue other care per attending / other consultants -discharge planning per primary Subjective Date of service: 06/07/21 Principal diagnosis: R. pleural effusion; H/O breast cancer; Hypotension; COVID 19 PUI; UTI Interval history: Patient is seen today for: Right pleural effusion; H/O breast cancer; Hy potension; UTI; Degenerative arthritis of left knee Seen and examined at bedside; 24hour events reviewed; nursing staff consulted; no adverse overnight events reported to me;sitting up on the side of the bed having breakfast; s/p right thoracentesis yesterday; poor appetite. She denies any chest pain, has some shortness of breath that is apparent when she talks. she denies any fevers, no chills, no nausea or vomiting. Very tired and weak Objective Vital Signs - 12hr 06/06/21 06/07/21 22:31 05:40 Temperature 98.5 F 97.6 F Pulse Rate 102 H 109 H Respiratory 18 18 Rate Blood Pressure 115/71 104/66 O2 Sat by Pulse 94 92 Oximetry Constitutional: no acute distress, alert, other (Weak.) Eyes: non-icteric ENT: oropharynx moist Neck: supple, no lymphadenopathy, no JVD Effort: mildly labored Ascultation: Right: rhonchi, Bilateral: diminished breath sounds (right lung posteriorly) Percussion: Right: dull (base) Cardiovascular: regular rate and rhythm, other (S1,S2) Gastrointestinal: normoactive bowel sounds, soft, non-tender, non-distended Integumentary: normal Extremities: no cyanosis, no edema, pulses normal Neurologic: normal mental status, non-focal exam, pupils equal and round, CN II- XII normal Psychiatric: mood appropriate, affect normal CBC and BMP: 06/04/21 04:54 06/04/21 04:54 ABG, PT/INR, D-dimer: PT/INR, D-dimer PT 14.8 Sec. (12.2-14.9) 06/04/21 15:13 INR 1.10 (0.87-1.13) 06/04/21 15:13 Abnormal lab findings: Abnormal Labs 06/03/21 06/03/21 06/03/21 15:06 15:06 17:42 RDW 15.6 H Lymph % (Auto) 12.1 L [place] % (Auto) 13.4 H Baso % (Auto) 2.0 H Lymph # (Auto) 1.0 L [place] # (Auto) 1.1 H Baso # (Auto) 0.2 H Seg Neutrophils % 72.1 H Sodium 132 L Potassium 3.3 L [place] 92.3 L Creatinine 1.3 H Calcium 10.5 H AST 72 H Albumin 3.3 L Urine WBC (Auto) 25.0 H 06/04/21 06/04/21 04:54 04:54 RDW 15.8 H Lymph % (Auto) 12.2 L [place] % (Auto) 11.6 H Baso % (Auto) Lymph # (Auto) 1.0 L [place] # (Auto) 1.0 H Baso # (Auto) Seg Neutrophils % 75.1 H Sodium 135 L Potassium Chloride 93.7 L Creatinine Calcium 10.4 H AST 87 H Albumin 3.4 L Urine WBC (Auto) Chest x-ray: image reviewed (right pleural effusion) Allied health notes reviewed: nursing
[2021-06-07] MEDS: FAMOTIDINE 10 MG TAB PO SCH (09:19)
--- NOTE | 2021-06-07 11:00 | Progress Note ---
Assessment and Plan - Patient Problems (1) Pleural effusion Current Visit: Yes Status: Acute Plan to address problem: Diagnostic paracentesis complete. Patient had worsening weakness after paracentesis and therefore waiting custodial facility evaluation and rehab evaluation Outpatient follow-up with breast surgeon Dr. Serrano (2) Full code status Current Visit: Yes Status: Acute (3) History of breast cancer Current Visit: Yes Status: Acute Plan to address problem: Currently no treatment will require oncology outpatient. (4) UTI (urinary tract infection) Current Visit: Yes Status: Acute Plan to address problem: Empiric antibiotic treatment here. Does not appear to be septic at this time. (5) Degenerative arthritis of left knee Current Visit: No Status: Resolved Qualifiers: Osteoarthritis type: primary Qualified Code(s): M17.12 - Unilateral primary osteoarthritis, left knee Plan to address problem: Pain control Supportive care. Subjective Date of service: 06/07/21 Principal diagnosis: R. pleural effusion; H/O breast cancer; Hypotension; COVID 19 PUI; UTI Interval history: Patient presents from [facility] right pleural effusion history of breast mass hypotension. Patient currently ruled out for COVID-19 with negative serology. Blood pressure now stabilized no longer hypotensive after IV fluids. Patient has right pleural effusion with a history of breast cancer. Diagnostic thoracentesis scheduled since patient is ruled out for [place]. Patient complained of increased weakness yesterday therefore did not go home. Now states she remains weak today. Family unable to care for her and we can state would like rehab. Physical therapy consult for rehab and assess patient's potential Objective - Constitutional Vitals: Vital Signs - 12hr 06/07/21 06/07/21 05:40 08:44 Temperature 97.6 F Pulse Rate 109 H Respiratory 18 Rate Blood Pressure 104/66 O2 Sat by Pulse 92 95 Oximetry General appearance: Present: no acute distress, well-nourished - EENT Eyes: PERRL, EOM intact ENT: hearing intact, clear oral mucosa Ears: bilateral: normal - Neck Neck: supple, normal ROM - Respiratory Respiratory effort: normal Respiratory: bilateral: CTA - Breasts Breasts: normal - Cardiovascular Rhythm: regular Heart Sounds: Present: S1 & S2. Absent: gallop, rub Extremities: pulses intact, No edema, normal color, Full ROM Extremity abnormal: other (Left leg does have some quadriceps weakness as well as bilateral calf weakness. Will probably benefit from therapy may be able to go home with therapy.) - Gastrointestinal General gastrointestinal: Present: soft, non-tender, non-distended, normal bowel sounds - Genitourinary Female genitourinary: normal - Integumentary Integumentary: clear, warm, dry - Musculoskeletal Musculoskeletal: 1, strength equal bilaterally - Neurologic Neurologic: moves all extremities - Psychiatric Psychiatric: memory intact, appropriate mood/affect, intact judgment & insight - Labs CBC & Chem 7: 06/04/21 04:54 06/04/21 04:54
[2021-06-08] MEDS: FAMOTIDINE 10 MG TAB PO SCH ×3 (02:14→22:13)
[2021-06-08] MEDS: ENOXAPARIN 40 MG/0.4 ML INJ SUB-Q SCH ×2 (02:14→22:13)
[2021-06-08] MEDS: CETIRIZINE 10 MG TAB PO SCH ×2 (02:14→22:13)
--- NOTE | 2021-06-08 09:29 | XRay Report ---
CHEST 1 VIEW INDICATION: shortness of breath. COMPARISON: 2 days prior FINDINGS: Support devices: None. Heart: Normal. Lungs/Pleura: There is reaccumulation of right pleural effusion, this is small to moderate in size. M ild bibasilar opacities persist. No pneumothorax. IMPRESSION: 1. Increasing right pleural effusion. Signer Name: Balwinder Lehman MD Signed: 06/08/2021 9:25 AM Workstation Name: [id number]
--- NOTE | 2021-06-08 12:26 | Progress Note ---
Assessment and Plan Assessment and plan: - Patient Problems (1) Pleural effusion Current Visit: Yes Status: Acute Plan to address problem: Diagnostic paracentesis complete. Patient had worsening weakness after paracentesis and therefore waiting half-way facility evaluation and rehab evaluation Outpatient follow-up with breast surgeon Dr. Serrano (2) Full code status Current Visit: Yes Status: Acute (3) History of breast cancer Current Visit: Yes Status: Acute Plan to address problem: Currently no treatment will require oncology outpatient. (4) UTI (urinary tract infection) Current Visit: Yes Status: Acute Plan to address problem: Empiric antibiotic treatment here. Does not appear to be septic at this time. (5) Degenerative arthritis of left knee Current Visit: No Status: Resolved Qualifiers: Osteoarthritis type: primary Qualified Code(s): M17.12 - Unilateral primary osteoarthritis, left knee Plan to address problem: Pain control Supportive care. Principal diagnosis: R. pleural effusion; H/O breast cancer; Hypotension; COVID 19 PUI; UTI Interval history: Patient presents from [facility] right pleural effusion history of breast mass hypotension. Patient currently ruled out for COVID-19 with negative serology. Blood pressure now stabilized no longer hypotensive after IV fluids. Patient has right pleural effusion with a history of breast cancer. Diagnostic thoracentesis scheduled since patient is ruled out for [place]. Patient complained of increased weakness yesterday therefore did not go home. Now states she remains weak today. Family unable to care for her and we can state would like rehab. Physical therapy consult for rehab and assess patient's potential 06/08: Patient is clinically stable according to documentation appears family can not take care of the patient. Following thoracentesis cytology still pending. This will help determine if this fluid is a secondary of malignant breast CA. Will recommend outpatient oncologist with Dr. Lehman or if patient has a primary oncologist, followed the same. Case management working on placement. History Interval history: Patient seen and examined reports that she has had chronic weakness and shortness of breath for some time. She is not wearing her oxygen at this time. Does not appear in acute distress. Hospitalist Physical - Physical exam Narrative exam: General appearance: Present: no acute distress, well-nourished, resting comfortably gait not assessed - EENT Eyes: PERRL, EOM intact ENT: hearing intact, clear oral mucosa Ears: bilateral: normal - Neck Neck: supple, normal ROM - Respiratory Respiratory effort: normal Respiratory: bilateral: CTA - Breasts Breasts: normal - Cardiovascular Rhythm: regular Heart Sounds: Present: S1 & S2. Absent: gallop, rub Extremities: pulses intact, No edema, normal color, Full ROM Extremity abnormal: other (Left leg does have some quadriceps weakness as well as bilateral calf weakness. Will probably benefit from therapy may be able to go home with therapy.) - Gastrointestinal General gastrointestinal: Present: soft, non-tender, non-distended, normal bowel sounds - Genitourinary Female genitourinary: normal - Integumentary Integumentary: clear, warm, dry - Musculoskeletal Musculoskeletal: 1, strength equal bilaterally - Neurologic Neurologic: moves all extremities - Psychiatric Psychiatric: memory intact, appropriate mood/affect, intact judgment & insight - Constitutional Vitals: Temp Pulse Resp BP Pulse Ox 97.7 F 92 H 18 114/68 97 06/08/21 05:04 06/08/21 05:04 06/08/21 05:04 06/08/21 05:04 06/08/21 08:00 General appearance: Present: no acute distress, well-nourished Results - Labs CBC & Chem 7: 06/04/21 04:54 06/04/21 04:54 Labs: Laboratory Last Values WBC 8.5 K/mm3 (4.5-11.0) 06/04/21 04:54 RBC 4.32 M/mm3 (3.65-5.03) 06/04/21 04:54 Hgb 12.6 gm/dl (10.1-14.3) 06/04/21 04:54 Hct 37.3 % (30.3-42.9) 06/04/21 04:54 MCV 86 fl (79-97) 06/04/21 04:54 MCH 29 pg (28-32) 06/04/21 04:54 MCHC 34 % (30-34) 06/04/21 04:54 RDW 15.8 % (13.2-15.2) H 06/04/21 04:54 Plt Count 325 K/mm3 (140-440) 06/04/21 04:54 Lymph % (Auto) 12.2 % (13.4-35.0) L 06/04/21 04:54 [place] % (Auto) 11.6 % (0.0-7.3) H 06/04/21 04:54 Eos % (Auto) 0.2 % (0.0-4.3) 06/04/21 04:54 Baso % (Auto) 0.9 % (0.0-1.8) 06/04/21 04:54 Lymph # (Auto) 1.0 K/mm3 (1.2-5.4) L 06/04/21 04:54 [place] # (Auto) 1.0 K/mm3 (0.0-0.8) H 06/04/21 04:54 Eos # (Auto) 0.0 K/mm3 (0.0-0.4) 06/04/21 04:54 Baso # (Auto) 0.1 K/mm3 (0.0-0.1) 06/04/21 04:54 Seg Neutrophils % 75.1 % (40.0-70.0) H 06/04/21 04:54 Seg Neutrophils # 6.4 K/mm3 (1.8-7.7) 06/04/21 04:54 PT 14.8 Sec. (12.2-14.9) 06/04/21 15:13 INR 1.10 (0.87-1.13) 06/04/21 15:13 Sodium 135 mmol/L (137-145) L 06/04/21 04:54 Potassium 3.8 mmol/L (3.6-5.0) 06/04/21 04:54 Chloride 93.7 mmol/L (98-107) L 06/04/21 04:54 Carbon Dioxide 29 mmol/L (22-30) 06/04/21 04:54 Anion Gap 16 mmol/L 06/04/21 04:54 BUN 17 mg/dL (7-17) 06/04/21 04:54 Creatinine 0.8 mg/dL (0.6-1.2) 06/04/21 04:54 Estimated GFR > 60 ml/min 06/04/21 04:54 BUN/Creatinine Ratio 21 % 06/04/21 04:54 Glucose 68 mg/dL (65-100) 06/04/21 04:54 Hemoglobin A1c 5.6 % (4-6) 06/03/21 21:16 Lactic Acid 1.60 mmol/L (0.7-2.0) 06/03/21 18:58 Calcium 10.4 mg/dL (8.4-10.2) H 06/04/21 04:54 Total Bilirubin 1.10 mg/dL (0.1-1.2) 06/04/21 04:54 AST 87 units/L (5-40) H 06/04/21 04:54 ALT 15 units/L (7-56) 06/04/21 04:54 Alkaline Phosphatase 111 units/L (35-129) 06/04/21 04:54 Total Protein 6.9 g/dL (6.3-8.2) 06/04/21 04:54 Albumin 3.4 g/dL (3.9-5) L 06/04/21 04:54 Albumin/Globulin Ratio 1.0 % 06/04/21 04:54 Urine Color [place] (Yellow) 06/03/21 17:42 Urine Turbidity Cloudy (Clear) 06/03/21 17:42 Urine pH 5.0 (5.0-7.0) 06/03/21 17:42 Ur Specific [place] 1.015 (1.003-1.030) 06/03/21 17:42 Urine Protein >500 mg/dL (Negative) 06/03/21 17:42 Urine Glucose (UA) 50 mg/dL (Negative) 06/03/21 17:42 Urine Ketones Tr mg/dL (Negative) 06/03/21 17:42 Urine Blood Sm (Negative) 06/03/21 17:42 Urine Nitrite Neg (Negative) 06/03/21 17:42 Urine Bilirubin Neg (Negative) 06/03/21 17:42 Urine Urobilinogen < 2.0 mg/dL (<2.0) 06/03/21 17:42 Ur Leukocyte Esterase Tr (Negative) 06/03/21 17:42 Urine WBC (Auto) 25.0 /HPF (0.0-6.0) H 06/03/21 17:42 Urine RBC (Auto) 7.0 /HPF (0.0-6.0) 06/03/21 17:42 U Epithel Cells (Auto) 5.0 /HPF (0-13.0) 06/03/21 17:42 Urine Bacteria (Auto) 4+ /HPF (Negative) 06/03/21 17:42 Hyaline Casts 35 /LPF 06/03/21 17:42 Urine Mucus 3+ /HPF 06/03/21 17:42 Fluid Type Pleural 06/06/21 Unknown Fluid Color Yellow 06/06/21 Unknown Fluid Appearance Cloudy 06/06/21 Unknown Fluid WBC 5425 /mm3 06/06/21 Unknown Fluid RBC 2600 /mm3 06/06/21 Unknown Fluid Seg Neutrophils 55.0 % 06/06/21 Unknown Fluid Lymphocytes 10.0 % 06/06/21 Unknown Fluid Reactive Lymphs 0 % 06/06/21 Unknown Fluid Monocytes 25.0 % 06/06/21 Unknown Fluid Eosinophils 10.0 % 06/06/21 Unknown Fluid Basophils 0 % 06/06/21 Unknown Coronavirus (PCR) Negative (Negative) 06/04/21 Unknown Blood Type O POSITIVE 06/03/21 21:21 Antibody Screen Negative 06/03/21 21:21 Microbiology: Microbiology 06/03/21 18:58 Peripheral/Venous Blood Culture - Preliminary NO GROWTH AFTER 4 DAYS 06/03/21 18:58 Peripheral/Venous Blood Culture - Preliminary NO GROWTH AFTER 4 DAYS 06/04/21 Unknown Pleural Fluid - Pleura,Rt Lung Body Fluid Culture - Preliminary Ricardo/IV: Voiding Method Bedside Commode Active Medications - Current Medications Current Medications: Generic Name Dose Route Start Last Admin Trade Name Freq PRN Reason Stop Dose Admin Acetaminophen 650 mg 06/03/21 20:35 06/06/21 12:13 Acetaminophen 325 Mg Tab PO 650 mg Q6H PRN Administration Pain, Mild (1-3) Hydrocodone Bitart/Acetaminophen 2 each 06/03/21 20:35 Hydrocodone/Acetaminophen 5-325 Mg Tab PO Q6H PRN Pain, Moderate (4-6) Al Hydrox/Mg Hydrox/Simethicone 30 ml 06/03/21 20:35 Alum-Mag Hydroxide-Simethicone [id number]/5ml Oral Liqd 30 Ml PO Q4H PRN Indigestion Albuterol 2.5 mg 06/03/21 20:35 Albuterol 2.5 Mg/3 Ml Nebu IH Q4HRT PRN Shortness Of Breath Cetirizine HCl 10 mg 06/03/21 22:00 06/08/21 02:14 Cetirizine 10 Mg Tab PO 10 mg Q24H SHALINI Administration Enoxaparin Sodium 40 mg 06/03/21 22:00 06/08/21 02:14 Enoxaparin 40 Mg/0.4 Ml Inj SUB-Q 40 mg QDAY@2200 SHALINI Administration Famotidine 10 mg 06/04/21 10:00 06/08/21 10:25 Famotidine 10 Mg Tab PO 10 mg BID SHALINI Administration Guaifenesin 10 ml 06/03/21 20:43 Guaifenesin Dm 200/20 Mg Oral Liqd 10 Ml PO Q4H PRN Congestion/COUGH Sodium Chloride 1,000 mls @ 75 mls/hr 06/04/21 07:15 06/04/21 23:10 Nacl 0.9% 1000 Ml IV 75 mls/hr DIRECT SHALINI Administration Magnesium Hydroxide 30 ml 06/03/21 20:35 06/05/21 15:37 Magnesium Hydroxide (Mom) Oral Liqd Udc PO 30 ml Q4H PRN Administration Constipation Metoclopramide HCl 10 mg 06/03/21 20:35 Metoclopramide 10 Mg/2 Ml Inj IV Q6H PRN Nausea And Vomiting Naloxone HCl 0.1 mg 06/03/21 20:35 Naloxone 0.4 Mg/1 Ml Inj IV Q2MIN PRN Res Rate </= 8 or 02 SAT < 92% Ondansetron HCl 4 mg 06/03/21 20:35 Ondansetron 4 Mg/2 Ml Inj IV Q8H PRN Nausea And Vomiting Senna 8.6 mg 06/03/21 20:35 Sennosides 8.6 Mg Tab PO Q12HR PRN Constipation Sodium Chloride 10 ml 06/03/21 22:00 06/08/21 10:26 Sodium Chloride 0.9% 10 Ml Flush Syringe IV Not Given BID SHALINI Sodium Chloride 10 ml 06/03/21 20:35 Sodium Chloride 0.9% 10 Ml Flush Syringe IV PRN PRN LINE FLUSH Nutrition/Malnutrition Assess - Dietary Evaluation Nutrition/Malnutrition Findings: Nutrition Notes Start: 06/05/21 14:51 Freq: Status: Active Protocol: Document 06/06/21 13:35 (Rec: 06/06/21 13:38 LUCA [id number]) Nutrition Notes Initial or Follow up Brief Note Other Pertinent Diagnosis UTI, hypotension, hx breast cancer Current Diet full liquid Labs/Tests reviewed Pertinent Medications reviewed Height 5 ft 9 in Weight 68.5 kg [place] Body Weight (kg) 65.90 BMI 22.3 Weight Status Appropriate Subjective/Other Information Pt not in room at time of visit. Per RN, she has had 1 ONS today and 2 ONS yesterday. Minimal meal tray intakes. Percent of energy/protein needs met: 48%/48% Burn Absent Trauma Absent Current % PO Negligible Minimum of two criteria Yes Energy Intake (non-severe) <75% Estimated Energy Requirement >7 days Interpretation of Weight Loss (severe) >7.5% in 3 months #1 Nutrition Diagnosis Malnutrition Diagnosis Progress(for reassessment Continues documentation) Is patient on ventilator? No Is Patient Ambulatory and/or Out of Bed No REE-([facility]-confined to bed) 1465.204 Calculation Used for Recommendations [facility] Additional Notes Protein: (1.2-1.5g/kg) 82-102g Fluid: 1 ml/kcal Nutrition Intervention Add Supplement/Snack (indicate name/kcal Ensure Enlive TID /protein ) Provides kCal: 1,050 Provides Protein (gm) 60 Goal #1 Meet at least 75% of energy and protein needs via PO and ONS Anticipated Discharge Needs: unable to determine at this time Follow-Up By: 06/10/21 Additional Comments FU for intakes and ONS tolerance
--- NOTE | 2021-06-08 13:14 | Progress Note ---
Assessment and Plan Right pleural effusion H/O breast cancer Hypotension UTI Degenerative arthritis of left knee Pleural fluid analysis is neutrophil predominant. There are other white cells. LDH, albumin and cytology is pending. -Still awaiting Oncology - prn supplemental oxygen to keep O2 sats > 90% - prn bronchodilators (ELLIOT) with pulm hygiene per RT - PT/OT - increase activity -Encourage oral intake - continue accuchecks with glycemic control per SSI for target blood glucose < 180 mg/dL - VTE prophylaxis - Flu & pneumovax per protocol - prn analgesia per pain score - continue other care per attending / other consultants -discharge planning per primary Subjective Date of service: 06/08/21 Principal diagnosis: R. pleural effusion; H/O breast cancer; Hypotension; COVID 19 PUI; UTI Interval history: Patient is seen today for: Right pleural effusion; H/O breast cancer; Hypotension; UTI; Degenerative arthritis of left knee Seen and examined at bedside; 24hour events reviewed; nursing staff consulted; no adverse overnight events reported to me;sitting up on the side of the bed having breakfast; s/p right thoracentesis ; poor appetite. She denies any chest pain, has some shortness of breath that is apparent when she talks. she denies any fevers, no chills, no nausea or vomiting. Very tired and weak Discussed with PT at the bedside- patient is weak and debilitated- per her sandra menjivar this is not new Objective Vital Signs - 12hr 06/08/21 06/08/21 05:04 08:00 Temperature 97.7 F Pulse Rate 92 H Respiratory 18 Rate Blood Pressure 114/68 O2 Sat by Pulse 93 97 Oximetry Constitutional: no acute distress, alert, other (Weak.) Eyes: non-icteric ENT: oropharynx moist Neck: supple, no lymphadenopathy, no JVD Effort: mildly labored Ascultation: Right: rhonchi, Bilateral: diminished breath sounds (right lung posteriorly) Percussion: Right: dull (base) Cardiovascular: regular rate and rhythm, other (S1,S2) Gastrointestinal: normoactive bowel sounds, soft, non-tender, non-distended Integumentary: normal Extremities: no cyanosis, no edema, pulses normal Neurologic: normal mental status, non-focal exam, pupils equal and round, CN II- XII normal Psychiatric: mood appropriate, affect normal CBC and BMP: 07/28/21 04:54 06/04/21 04:54 ABG, PT/INR, D-dimer: PT/INR, D-dimer PT 14.8 Sec. (12.2-14.9) 06/04/21 15:13 INR 1.10 (0.87-1.13) 06/04/21 15:13 Abnormal lab findings: Abnormal Labs 06/03/21 06/03/21 06/03/21 15:06 15:06 17:42 RDW 15.6 H Lymph % (Auto) 12.1 L [place] % (Auto) 13.4 H Baso % (Auto) 2.0 H Lymph # (Auto) 1.0 L [place] # (Auto) 1.1 H Baso # (Auto) 0.2 H Seg Neutrophils % 72.1 H Sodium 132 L Potassium 3.3 L Chloride 92.3 L Creatinine 1.3 H Calcium 10.5 H AST 72 H Albumin 3.3 L Urine WBC (Auto) 25.0 H 06/04/21 06/04/21 04:54 04:54 RDW 15.8 H Lymph % (Auto) 12.2 L [place] % (Auto) 11.6 H Baso % (Auto) Lymph # (Auto) 1.0 L [place] # (Auto) 1.0 H Baso # (Auto) Seg Neutrophils % 75.1 H Sodium 135 L Potassium Chloride 93.7 L Creatinine Calcium 10.4 H AST 87 H Albumin 3.4 L Urine WBC (Auto) Allied health notes reviewed: nursing
--- NOTE | 2021-06-09 07:54 | Discharge Summary ---
Providers - Providers Date of Admission: 06/03/21 19:42 Attending physician: LILA PYLE MD 06/03/21 Consult to Case Management [CONS] Routine Services Needed at Discharge: Transfer And Pumphouse Operator Notified:: cm notified 06/04/21 10:27 Consult to Physician [CONS] Routine Comment: Consulting Provider: ADELIA NASSAR Physician Instructions: Reason For Exam: right sided pleural effusion 06/06/21 14:52 Physical Therapy Evaluation and Treat [CONS] Routine Comment: Reason For Exam: weakness Primary care physician: TYRESE EMMANUEL Hospitalization Reason for admission: Shortness of breath Condition: Stable Hospital course: Patient is an 80-year-old female presents from [facility] right pleural effusion history of breast mass, hypotension. Patient currently ruled out for COVID-19 with negative serology. Blood pressure now stabilized no longer hypotensive after IV fluids. Patient has right pleural effusion with a history of breast cancer. Diagnostic thoracentesis scheduled since patient is ruled out for [place]. Patient complained of increased weakness yesterday therefore did not go home. Now states she remains weak today. Family unable to care for her and we can state would like rehab. Physical therapy consult for rehab and assess patient's potential Principal diagnosis: R. pleural effusion; H/O breast cancer; Hypotension; COVID 19 PUI; UTI 06/08: Patient is clinically stable according to documentation appears family cannot take care of the patient. Following thoracentesis cytology still pending. This will help determine if this fluid is a secondary of malignant breast CA. Will recommend outpatient oncologist with Dr. Hemphill or if patient has a primary oncologist, followed the same. Case management working on placement. 06/09: Patient this morning is doing well despite mild reaccumulation of fluids in the lungs. I did discuss with the reducing system operator considering that she is on room air can be discharged. She understands that we do not have pathology report yet and will follow up with the primary care physician I have also recommended an outpatient oncologist for further evaluation outpatient. There was a plan for discharge to SNF but approval was not obtained at this time. Family agreeable to take the patient home with home health and will work with your primary care doctor. (1) Pleural effusion-recurrent Current Visit: Yes Status: Acute Plan to address problem: Diagnostic paracentesis complete. Patient had worsening weakness after paracentesis and therefore waiting shelter facility evaluation and rehab evaluation Outpatient follow-up with breast surgeon Dr. Serrano (2) respiratory failure with hypoxia now resolved (3) History of breast cancer Current Visit: Yes Status: Acute Plan to address problem: Currently no treatment will require oncology outpatient. (4) UTI (urinary tract infection) Current Visit: Yes Status: Acute Plan to address problem: Empiric antibiotic treatment here. Does not appear to be septic at this time. (5) Degenerative arthritis of left knee Current Visit: No Status: Resolved Qualifiers: Osteoarthritis type: primary Qualified Code(s): M17.12 - Unilateral primary osteoarthritis, left knee Plan to address problem: Pain control Supportive care. Disposition: DC/TX-06 HOME UNDER HOME [facility] Final Discharge Diagnosis (Prints w/discharge instructions): Recurrent pleural effusion with hypoxic respiratory failure Time spent for discharge: 35 mins Core Measure Documentation - Palliative Care Palliative Care/ Comfort Measures: Not Applicable - Core Measures Any of the following diagnoses?: none Exam - Physical Exam Narrative exam: General appearance: Present: no acute distress, well-nourished, resting comfortably gait not assessed - EENT Eyes: PERRL, EOM intact ENT: hearing intact, clear oral mucosa Ears: bilateral: normal - Neck Neck: supple, normal ROM - Respiratory Respiratory effort: normal Respiratory: bilateral: CTA - Breasts Breasts: normal - Cardiovascular Rhythm: regular Heart Sounds: Present: S1 & S2. Absent: gallop, rub Extremities: pulses intact, No edema, normal color, Full ROM Extremity abnormal: other (Left leg does have some quadriceps weakness as well as bilateral calf weakness. Will probably benefit from therapy may be able to go home with therapy.) - Gastrointestinal General gastrointestinal: Present: soft, non-tender, non-distended, normal bowel sounds - Genitourinary Female genitourinary: normal - Integumentary Integumentary: clear, warm, dry - Musculoskeletal Musculoskeletal: 1, strength equal bilaterally - Neurologic Neurologic: moves all extremities - Psychiatric Psychiatric: memory intact, appropriate mood/affect, intact judgment & insight - Constitutional Vitals: Temp Pulse Resp BP Pulse Ox 97.6 F 94 H 16 108/64 96 06/09/21 04:54 06/09/21 04:54 06/09/21 04:54 06/09/21 04:54 06/09/21 04:54 Plan Activity: advance as tolerated, fall precautions Diet: low fat Special Instructions: record daily weights, record daily BP diary Follow up with: TYRESE EMMANUEL MD [Primary Care Provider] - 3-5 Days [id number] SERRANO MD [Staff Physician] - 7 Days RAFAEL HEMPHILL MD [Staff Physician] - 7 Days Prescriptions: HYDROcodone/APAP 5-325 [[place] 5-325 mg TAB] 2 each PO Q6H PRN #14 tablet PRN Reason: Pain, Moderate (4-6)
[2021-06-09] MEDS: FAMOTIDINE 10 MG TAB PO SCH (09:58)
[2021-06-09 11:01] VITALS: BP 115/70
[2021-06-11 09:52] LABS: LDH,Body Fluid 1612; Total Protein,Body Fluid 3.6 (15.0-45.0); Triglycerides,Body Fluid 13
== END 2021-06-09 13:32 | disposition home health service (06) ==
LOC: ED 12:10 → 3A 19:42
PROVIDERS: ADMIT Internal Medicine; ATTEND Internal Medicine
DX: J90 Pleural effusion, not elsewhere classified (principal); Z20.822 Contact with and (suspected) exposure to COVID-19; N39.0 Urinary tract infection, site not specified; I95.9 Hypotension, unspecified; M17.12 Unilateral primary osteoarthritis, left knee; K21.9 Gastro-esophageal reflux disease without esophagitis; Z85.3 Personal history of malignant neoplasm of breast; Z90.710 Acquired absence of both cervix and uterus; Z79.899 Other long term (current) drug therapy; Z98.890 Other specified postprocedural states; Z96.653 Presence of artificial knee joint, bilateral
CPT/HCPCS: 32555; 36415; 71045; 80053; 81001; 82040; 82140; 83036; 83605; 84160; 84478; 85025; 85610; 86850; 86900; 86901; 87040; 87086; 87116; 88112; 88305; 89051; 93005; 96361; 96365; 96366; 96372; 96375; 97116; 97163; 99285; G0378; J0696; J1650; J7030; U0003; 88341; 88342

== ENCOUNTER 2021-07-11 07:19 | Outpatient (CLI) | payer MEDICARE ==
[2021-07-11 10:03] LABS: INR 0.98 (0.87-1.13)
--- NOTE | 2021-07-11 10:49 | Short Stay Summary ---
Short Stay Documentation Date of service: 07/11/21 - History Principal diagnosis: right pleural effusion - Allergies and Medications Current Medications: Allergies Iodinated Contrast Media [Iodinated Contrast Media - IV Dye] Allergy (Verified 05/27/17 11:48) Swelling Home Medications Medication Instructions Recorded Confirmed Last Taken Type ALBUTEROL NEB's [Proventil 0.083% 2.5 mg IH Q4HRT PRN nebu 06/06/21 07/11/21 07/10/21 19:00 Rx NEBS] Acetaminophen [Acetaminophen TAB] 650 mg PO Q6H PRN tablet 06/06/21 07/11/21 1 Month Ago Rx ~06/10/21 Antacid [Alum-Mag Hydrox-Simeth 30 ml PO Q4H PRN oral.liqd 06/06/21 07/11/21 2 Days Ago Rx [id number]/5Ml] ~07/09/21 Metoclopramide [Reglan INJ] 10 mg IV Q6H PRN vial 06/06/21 07/11/21 07/10/21 20:00 Rx Sennosides Tab [Senokot] 8.6 mg PO Q12HR PRN tablet 06/06/21 07/11/21 2 Days Ago Rx ~07/09/21 guaiFENesin DM [Guaifenesin Dm 10 ml PO Q4H PRN oral.liqd 06/06/21 07/11/21 2 Days Ago Rx Syrup] ~07/09/21 Albuterol Mdi (or & Nicu Only) 2 puff PO Q4H PRN 07/11/21 07/11/21 07/11/21 08:00 History [ProAir HFA Inhaler] - Physical exam General appearance: no acute distress - Brief post op/procedure progress note Date of procedure: 07/11/21 Pre-op diagnosis: eight pleural effusion Post-op diagnosis: same Procedure: US thoracentesis Anesthesia: local Findings: moderate right pleural effusion Surgeon: JOAQUIN AYALA Estimated blood loss: none Pathology: none Specimen disposition: discarded Condition: stable - Hospital course Hospital course: uneventful - Disposition Condition at discharge: Good Disposition: 01 HOME / SELF CARE / HOMELESS Short Stay Discharge Plan Follow up with: TYRESE EMMANUEL MD [Primary Care Provider] - 7 Days
--- NOTE | 2021-07-11 11:22 | Ultrasound Report ---
ULTRASOUND-GUIDED THORACENTESIS HISTORY: Malignant neoplasmof lower outerquadrantof left br. COMPARISON: 06/04/2021 PROCEDURE: The risks (including but not limited to bleeding, infection, and pneumothorax) and benefi ts were explained to the patient and informed consent was obtained. A time out procedure was perform ed. Ultrasound was used to evaluate the right pleural effusion and locate the optimal site for needle ent ry. Once the skin was marked, the procedure site was prepped and draped in the usual sterile fashion and lidocaine was used for local anesthesia. A 5 Czech thoracentesis catheter was placed. The patie nt was monitored closely throughout the procedure, and a total of 900 mL of clear yellow fluid was as pirated. No labs were ordered. The patient tolerated the procedure well with no complications. A post-procedure chest x-ray was imm ediately ordered. IMPRESSION: Successful thoracentesis as above with a total of 900 mL of clear yellow fluid aspirated. Signer Name: Charbel Gibson Jr, MD Signed: 07/11/2021 11:18 AM Workstation Name: [id number]
[2021-07-11 13:08] VITALS: BP 116/79
--- NOTE | 2021-07-11 13:20 | XRay Report ---
CHEST 1 VIEW INDICATION: post thoracentesis. COMPARISON: 06/08/2021 FINDINGS: Support devices: None. Heart: Within normal limits. Lungs/Pleura: Near complete evacuation of the right pleural effusion is demonstrated. There is no conrad dence for pneumothorax. Mild atelectatic changes are noted at the right lung base. The left lung is g enerally clear. Additional findings: None. IMPRESSION: Near complete evacuation of the right pleural effusion. No pneumothorax is appreciated. Signer Name: Charbel Gibson Jr, MD Signed: 07/11/2021 1:16 PM Workstation Name: [id number]
== END 2021-07-11 13:40 | disposition home or self-care (01) ==
LOC: CATHLABREC 07:19
PROVIDERS: ATTEND Internal Medicine Hematology & Oncology
DX: C50.512 Malignant neoplasm of lower-outer quadrant of left female breast (principal); J90 Pleural effusion, not elsewhere classified; K21.9 Gastro-esophageal reflux disease without esophagitis; M19.90 Unspecified osteoarthritis, unspecified site; N39.0 Urinary tract infection, site not specified; Z79.899 Other long term (current) drug therapy; Z98.890 Other specified postprocedural states; Z91.041 Radiographic dye allergy status
CPT/HCPCS: 32555; 36415; 71045; 85610

== ENCOUNTER 2021-07-25 07:24 | Outpatient (CLI) | payer MEDICARE ==
--- NOTE | 2021-07-25 10:35 | Ultrasound Report ---
Ultrasound-guided thoracentesis 07/25/2021 9:29 AM Indication: Malignant neoplasm of the lower quadrant of the left breast Procedure: Procedure was discussed with the patient including alternatives, risks and benefits. Risks of the pro cedure including bleeding, infection, and pneumothorax were explained. Patient's questions were answe red. Informed consent was obtained. The patient was placed in an upright seated position. Adequate site for thoracentesis was identified on the right. Skin was marked and prepped and draped in sterile fashion. Local anesthesia was infused . A 6 Irish centesis needle catheter system was inserted into the pleural space. Approximately 0.9 L of fluid was withdrawn. There were no immediate complications. Impression: Successful ultrasound-guided thoracentesis Signer Name: Boy Crowell DO Signed: 07/25/2021 10:31 AM Workstation Name: [id number]
[2021-07-25 12:12] VITALS: BP 127/83
--- NOTE | 2021-07-25 12:12 | XRay Report ---
CHEST 1 VIEW 07/25/2021 10:48 AM INDICATION / CLINICAL INFORMATION: post thorocentesis. COMPARISON: 07/11/2021 FINDINGS: SUPPORT DEVICES: None. HEART / MEDIASTINUM: No significant abnormality. LUNGS / PLEURA: There is decreased prominence of a right pleural effusion. As compared to the previou s chest radiograph there is increased opacification within the left lung. No pneumothorax. ADDITIONAL FINDINGS: No significant additional findings. IMPRESSION: 1. Status post thoracentesis. No pneumothorax. 2. Increased opacifications within the left lung which may be secondary to infectious process versus atelectasis. This was discussed with the patient who indicated that there is been no change in her sy mptoms. Patient was instructed to return to hospital if she became febrile or symptoms worsened.. Signer Name: Boy Crowell DO Signed: 07/25/2021 12:08 PM Workstation Name: [id number]
== END 2021-07-25 12:45 | disposition home or self-care (01) ==
LOC: CATHLABREC 07:24 → US 07:24
PROVIDERS: ATTEND Internal Medicine Hematology & Oncology
DX: C50.512 Malignant neoplasm of lower-outer quadrant of left female breast (principal); J90 Pleural effusion, not elsewhere classified; K21.9 Gastro-esophageal reflux disease without esophagitis; M19.90 Unspecified osteoarthritis, unspecified site; Z90.710 Acquired absence of both cervix and uterus; Z98.890 Other specified postprocedural states; Z79.899 Other long term (current) drug therapy; Z91.041 Radiographic dye allergy status
CPT/HCPCS: 32555; 71045